=== PATIENT | female | born 1995 | race Caucasian/White ===

== ENCOUNTER 2018-03-18 11:42 | Emergency (ER) | payer OTHER ==
[~2018-03-18] VITALS: Ht 157.5 cm; Wt 85.7 kg
== END 2018-03-18 15:36 | disposition home or self-care (01) ==
LOC: EMR PED 11:42 → ER 11:51
DX: O20.8 Other hemorrhage in early pregnancy (principal); Z34.01 Encounter for supervision of normal first pregnancy, first trimester